=== PATIENT | male | born 1980 | race Caucasian/White ===

== ENCOUNTER 2021-02-24 21:22 | Emergency (ER) | payer SELFPAY ==
[2021-02-24] MEDS ORDERED: methylPREDNISolone Sod Succ/PF 125 MG/2 ML VIAL ONE (22:09)
== END 2021-02-24 22:15 | disposition home or self-care (01) ==
LOC: NAV ERS 21:22
DX: L50.0 Allergic urticaria (principal); F17.200 Nicotine dependence, unspecified, uncomplicated
CPT/HCPCS: 96372; 99282; J2930

== ENCOUNTER 2023-12-01 17:37 | Emergency (ER) | payer SELFPAY ==
[2023-12-01] MEDS ORDERED: Ketorolac Tromethamine 60 MG/2 ML VIAL ONE (18:05)
== END 2023-12-01 20:01 ==
LOC: NAV ERS 17:37 → EEVIPCON 17:37 → NAV ERS 20:01
DX: S39.012A Strain of muscle, fascia and tendon of lower back, initial encounter (principal); S83.92XA Sprain of unspecified site of left knee, initial encounter; R45.851 Suicidal ideations; M17.12 Unilateral primary osteoarthritis, left knee; I10 Essential (primary) hypertension; F17.210 Nicotine dependence, cigarettes, uncomplicated; F17.290 Nicotine dependence, other tobacco product, uncomplicated; Z79.899 Other long term (current) drug therapy; W01.0XXA Fall on same level from slipping, tripping and stumbling without subsequent striking against object, initial encounter
CPT/HCPCS: 70450; 72125; 72128; 72131; 96372; J1885